=== PATIENT | female | born 1960 | race Caucasian/White ===

== ENCOUNTER 2018-08-31 20:31 | Inpatient (IN) | payer OTHER ==
[~2018-08-31] VITALS: Ht 157.5 cm; Wt 121.8 kg
[~2018-08-31 20:31] MED LIST: APAP/HYDROCODON1 T13 PO; AUGMENTIN1 TA2 PO; COL250 PO; FLA500 PO; MULTIVITAMIN1 SGL PO; NORCO1 TA2 PO; PROAIR HFA0.09 MG/A1 INH; ZINC SULFATE220 MG PO; ZOC10 PO
--- NOTE | 2018-08-31 20:39 | NUR ---
EKG IN PROGRESS IN TRIAGE
[2018-08-31 20:40] VITALS: Ht 157.5 cm; Wt 121.8 kg
[2018-08-31 22:21] LABS: PLATELET COUNT 197 x10^3mcL (130-400); RED CELL DISTRIBUTION WIDTH 13.5 % (11.5-14.5)
[2018-08-31 22:22] LABS: BASOPHIL % 2.9 % (0-2)
[2018-08-31 22:32] LABS: CALCIUM 9.2 mg/dL (8.5-10.1); CARBON DIOXIDE 24.4 mmol/L (21-32); CHLORIDE SERUM 111 mmol/L (98-107); CREATININE SERUM 0.7 mg/dL (0.6-1.0); GFR1 > 60 mL/min; GLUCOSE SERUM 131 mg/dL (74-106); POTASSIUM SERUM 4.1 mmol/L (3.5-5.1); SODIUM SERUM 146 mmol/L (136-145)
[2018-08-31 22:37] LABS: ALKALINE PHOSPHATASE 121 U/L (46-116); ALT/SGPT 96 U/L (14-59); AST/SGOT 92 U/L (15-37); BILIRUBIN TOTAL 0.28 mg/dL (0.20-1.00); MAGNESIUM 1.9 mg/dL (1.8-2.4)
[2018-08-31 22:38] LABS: ALBUMIN 3.2 g/dL (3.4-5.0)
[2018-08-31 22:48] LABS: FREE T4 0.83 ng/dL (0.76-1.46); FREE THYROXINE INDEX 2.4 ug/dL (1.4-4.5); T4(THYROXINE) 8.5 ug/dL (4.7-13.3)
--- NOTE | 2018-08-31 23:05 | NUR ---
INFORMED DR MIJARES AND DICK RICHARDSON ABOUT CRITICAL RESULT OF TROPONIN
[2018-08-31 23:14] LABS: T3 TOTAL 1.53 ng/mL
--- NOTE | 2018-08-31 23:26 | NUR ---
PT AAOX4, NO S/S OF DISTRESS NOTED, RESPIRATIONS EVEN AND UNLABORED. PT REPORTS HEART PALPATATION X 2 WEEKS, WITH INCREASE IN "HEART FLUTTERING" SINCE 1700. PT REPORTS TAKING ANTIACIDS FOR DISCOMFORT WITH NO RELIEF. PT WHEN ASKED TO DESCRIBE PAIN, PT DENIES PAIN. PT DENIES ACTIVITY INCREASES SYMPTOMS. PT DENIES N/V/D. PT HOOKE UP TO FULL CM. PT REPORTS SLEEPING SITTING UP "FOR YEARS" AND REPORTS SOB WHEN LAYING FLAT. PT TALKING WITH FAMILY MEMBER AT BEDSIDE.
--- NOTE | 2018-09-01 00:20 | NUR ---
REPORT GIVEN TO KENRICK RICHARDSON.
[2018-09-01] MEDS ORDERED: MILK THISTLE1 POW (00:22)
[2018-09-01] MEDS ORDERED: FLAXSEED340 GM (00:22)
--- NOTE | 2018-09-01 00:30 | NUR ---
RECEIVED PT FROM ED VIA [facility], CAME IN DUE TO PALPITATIONS W/ SOB. AAOX4. DENIES HEADACHE/DIZZINESS. NO SOB NOTED, LUNG SOUNDS CTA. DENIES CHEST PAIN/PALPITATIONS AT THIS TIME. NSR ON THE MONITOR. DENIES ABDOMINAL DISCOMFORT. VOIDS. IV SITE PATENT AND INTACT. SIDE RAILS UPX2. CALL LIGHT ON REACH. FAMILY AT BEDSIDE. ENDORSED TO PRIMARY NURSE KENRICK FOR CONTINUITY OF CARE
[2018-09-01 00:41] VITALS: BP 123/70
[2018-09-01 04:36] LABS: CHOLESTEROL/HDL RATIO 3.9; PHOSPHOROUS 3.9 mg/dL (2.5-4.9)
--- NOTE | 2018-09-01 05:21 | NUR ---
PT SLEPT WELL.DENIES CHESTPAIN OR PALPITATIONS SINCE ADMISSION.BREATHING EASY AND NON-LABORED.IV FLUIDS STARTED ORDERED.ALL NEEDS MET.WILL CONTINUE TO MONITOR.
--- NOTE | 2018-09-01 05:30 | NUR ---
CALLED DR. ZHANG AND ASKED IF HE WANTS PT TO START ON BLOOD THINNER FOR ELEVATED TROPONIN BUT NOT YET AT THIS TIME PER MD.WILL ENDORSE TO AM NURSE.
[2018-09-01 05:35] VITALS: BP 110/76
[2018-09-01 07:02] LABS: MAGNESIUM 1.9 mg/dL (1.8-2.4); PHOSPHOROUS 4.5 mg/dL (2.5-4.9)
--- NOTE | 2018-09-01 07:17 | NUR ---
RECEVIED PATIENT FROM [facility]. PATIENT SEATED IN BED, WATCHING TV. DENIES ANY CHEST PAIN OR PALPITATIONS AT THIS TIME. INFORMED PATIENT ABOUT PLAN FOR TODAY AND NEED FOR URINE SAMPLE. PATIENT AGREES WITH PLAN OF CARE AND VERBALIZES UNDERSTANDING OF URINE COLLECTION. CALL LIGHT IN REACH AT THIS TIME.
--- NOTE | 2018-09-01 07:49 | NUR ---
DR CLEMENTS IN TO SPEAK WITH PATIENT ABOUT PLAN OF CARE. PATIENT VERBALIZES UNDERSTANDING. CALL LIGHT IN REACH AT THIS TIME.
[2018-09-01 09:15] VITALS: BP 121/60
[2018-09-01 10:21] LABS: UA SPECIFIC GRAVITY 1.025 (1.005-1.035); microscopic required? YES; urine erythrocyte TRACE (NEGATIVE)
[2018-09-01 10:30] LABS: AMPHETAMINE QUAL UR NONE DETECTED (See below)
--- NOTE | 2018-09-01 11:24 | NUR ---
PATIENT SEEN RESTING IN BED. NO COMPLAINTS OF PAIN AT THIS TIME. AT BEDSIDE. EXPLAINED TO PATIENT PURPOSE OF TROPONIN LEVELS, PATIENT AND VERBALIZED UNDERSTANDING, WILL AWAIT RESULTS. CALL LIGHT IN REACH.
[2018-09-01 13:56] VITALS: BP 124/67
[2018-09-01 14:46] VITALS: BP 124/67
--- NOTE | 2018-09-01 15:11 | NUR ---
THIRD TROP RESULT IS NEGATIVE, NOTFIED DR CLEMENTS AND AWARE. SPOKE WITH PATIENT AND FAMILY. AWAITING DISCHARGE.
--- NOTE | 2018-09-01 15:54 | NUR ---
DISCHARGE INSTRUCTIONS GIVEN TO PATIENT AND . ALL QUESTIONS ANSWERED. DISCHARGE PACKET GIVEN TO PATIENT, NO NEW PRESCRIPTIONS AT THIS TIME. TELEMETRY UNIT RETURNED TO [facility]. IV CATHETER REMOVED AND INTACT. PATIENT AND ESCORTED DOWNSTAIRS VIA WHEELCHAIR WITH PIPER BRANHAM
== END 2018-09-01 16:00 | disposition home or self-care (01) | DRG 203 ==
LOC: ED 20:31 → DU 23:53
PROVIDERS: Emergency Medicine; ADMIT Internal Medicine
DX: R07.89 Other chest pain (principal); E44.1 Mild protein-calorie malnutrition; E87.0 Hyperosmolality and hypernatremia; F41.9 Anxiety disorder, unspecified; J45.909 Unspecified asthma, uncomplicated; E66.01 Morbid (severe) obesity due to excess calories; R74.0 Nonspecific elevation of levels of transaminase and lactic acid dehydrogenase [LDH]; Z83.3 Family history of diabetes mellitus; Z82.49 Family history of ischemic heart disease and other diseases of the circulatory system; Z81.8 Family history of other mental and behavioral disorders; Z80.9 Family history of malignant neoplasm, unspecified; Z68.42 Body mass index [BMI] 45.0-49.9, adult
CPT/HCPCS: 84439; G0378; J7030

== ENCOUNTER 2019-01-08 09:03 | Emergency (ER) | payer OTHER ==
[~2019-01-08] VITALS: Ht 160 cm; Wt 121.6 kg
[~2019-01-08 09:03] MED LIST changes: +FLAXSEED340 GM; +MILK THISTLE1 POW
[2019-01-08 09:28] VITALS: Ht 160 cm; Wt 121.6 kg
[2019-01-08 11:25] VITALS: BP 145/81
== END 2019-01-08 11:25 | disposition home or self-care (01) ==
LOC: ED 09:03
DX: G51.0 Bell's palsy (principal); J45.909 Unspecified asthma, uncomplicated